=== PATIENT | female | born 1950 | race Hispanic/Latino ===

== ENCOUNTER 2024-06-28 09:34 | Inpatient (IN) | payer OTHER, MEDICARE ==
[~2024-06-28] VITALS: Ht 162.6 cm; Wt 102.5 kg
[2024-06-28] VITALS (7 sets, daily range): BP systolic 92–103; BP diastolic 57–61; PULSE 80–111; RESP 16–18; O2SAT 95–98
[2024-06-28 14:14] LABS: ABG BASE EXCESS -2.6 mmol/L (-2.0-3.0); ABG HCO3 20.8 mmol/L (21.0-28.0); ABG OXYGEN SATURATION 95.3 % (95.0-99.0); ABG PCO2 33 mmHg (32-45); ABG PH 7.423 (7.35-7.450); PO2, ARTERIAL BG 73.6 mmHg (83.0-108.0); VENT MODE, BG RA (ROOM AIR)
[2024-06-28] MEDS ORDERED: MIRA50TA PO (14:22)
[2024-06-28] MEDS ORDERED: GABA300C PO (14:22)
[2024-06-28] MEDS ORDERED: FLUT16H NASAL (14:22)
[2024-06-28] MEDS ORDERED: OLME20TA68 PO (14:22)
[2024-06-28] MEDS ORDERED: MONT-39 PO (14:22)
[2024-06-28] MEDS ORDERED: INSU100V54 SQ (14:22)
[2024-06-28] MEDS ORDERED: SITA1TAB PO (14:22)
[2024-06-28] MEDS ORDERED: DiphenhydrAMINE HCL 50 MG/ML VIAL IV PRN (16:00)
[2024-06-28] MEDS ORDERED: ALBUTEROL 0.083% 2.5 MG/3 ML INH IH PRN (16:00)
[2024-06-28] MEDS ORDERED: GUAIFENESIN-DM 200/20 MG 10 ML PO PRN (16:00)
[2024-06-28] MEDS ORDERED: KCL 20 MEQ ERTAB PO PRN (16:00)
[2024-06-28] MEDS ORDERED: HYDRALAZINE 25MG TABLET PO PRN (16:00)
[2024-06-28] MEDS ORDERED: LACTULOSE 20 GM/30 ML UDCUP PO PRN (16:00)
[2024-06-28] MEDS ORDERED: POTASSIUM CHLORIDE 20MEQ/100ML 100 ML IV PRN ×2 (16:00)
[2024-06-28] MEDS ORDERED: DOCUSATE SODIUM 100 MG CAP PO PRN (16:00)
[2024-06-28] MEDS ORDERED: ACETAMINOPHEN 325 MG TAB PO PRN (16:00)
[2024-06-28] MEDS ORDERED: POTASSIUM CHLORIDE 10% ELIXIR 20 MEQ/15 ML UDCUP PO PRN (16:00)
[2024-06-28] MEDS ORDERED: ONDANSETRON 4MG INJ IV PRN (16:00)
[2024-06-28] MEDS ORDERED: POLYETHYLENE GLYCOL 3350 17 GM POWD.PACK PO PRN (16:00)
[2024-06-28] MEDS ORDERED: DIPHENHYDRAMINE HCL 25 MG CAPSULE PO PRN (16:00)
[2024-06-28] MEDS: INSULIN HUMULIN R 100 UNIT/ML 3ML SQ SCH (16:30)
[2024-06-28] MEDS: NITROGLYCERIN 0.4 MG SL TAB SL PRN (16:51)
[2024-06-28] MEDS: ASPIRIN 81 MG EC TAB PO SCH (16:51)
[2024-06-28] MEDS: FUROSEMIDE 40 MG TABLET PO SCH (16:51)
[2024-06-28] MEDS: ISOSORBIDE MONO 30MG SR TAB PO SCH (16:57)
[2024-06-28] MEDS: METOPROLOL TARTRATE 25 MG TAB PO ONE ×2 (17:00→17:14)
[2024-06-28 17:22] LABS: BASOPHILS # (AUTO) 0.04 K/uL (0.00-0.20); BASOPHILS % (AUTO) 0.5 % (0.0-5.0); EOSINOPHILS # (AUTO) 0.19 K/uL (0.00-0.70); EOSINOPHILS % (AUTO) 2.5 % (0.0-8.0); IMMATURE GRANULOCYTE ABSOLUTE 0.02 K/uL (0-1); LYMPHOCYTES # (AUTO) 1.9 K/uL (1.0-4.8); LYMPHOCYTES % (AUTO) 24.6 % (21.0-51.0); MEAN CORPUSCULAR HEMOGLOBIN 28.5 pg (27.0-33.0); MEAN CORPUSCULAR HGB CONC 34.6 g/dL (32.0-36.0); MEAN CORPUSCULAR VOLUME 82.4 fL (79-99); MONOCYTES # (AUTO) 0.6 K/uL (0.1-1.0); MONOCYTES % (AUTO) 8.3 % (3.0-13.0); NEUTROPHILS # (AUTO) 4.9 K/uL (1.8-7.7); NEUTROPHILS % (AUTO) 63.8 % (40.0-77.0); PLATELET COUNT (AUTO) 312 K/uL (130-400); RED CELL DISTRIBUTION WIDTH 14.3 % (11.0-15.5); WHITE BLOOD COUNT (AUTO) 7.7 K/uL (4.8-10.8)
[2024-06-28 17:37] LABS: HEMOGLOBIN A1C 5.7 % (4.0-6.0)
[2024-06-28 17:40] LABS: B-TYPE NATRIURETIC PEPTIDE 1390 pg/mL (0-100)
[2024-06-28 17:41] LABS: ALBUMIN 2.6 g/dL (3.5-5.0); BILIRUBIN,TOTAL 0.3 mg/dL (0.2-1.0); CREATININE 1.1 mg/dL (0.5-1.0); MAGNESIUM 1.3 mg/dL (1.80-2.40); PHOSPHORUS 3.2 mg/dL (2.5-4.9); POTASSIUM 3.8 mmol/L (3.5-5.1); TOTAL PROTEIN, SERUM 5.7 g/dL (6.0-8.3)
[2024-06-28] MEDS: HEPARIN 25,000 UNITS/250ML D5W 250 ML IV SCH (18:32)
[2024-06-28] MEDS: FUROSEMIDE 20MG VIAL IV SCH (18:47)
[2024-06-28] MEDS: IPRATROPIUM/ALBUTEROL SULFATE 3 ML SOLUTION IH SCH (18:48)
[2024-06-28] MEDS: BUDESONIDE 0.5 MG/2 ML INH IH SCH (18:48)
[2024-06-28] MEDS: HEPARIN 5,000 UNIT VIAL IV PRN (18:54)
[2024-06-28] MEDS: GABAPENTIN 300 MG CAPSULE PO SCH (20:17)
[2024-06-28] MEDS: MONTELUKAST SODIUM 10 MG TAB PO SCH (20:17)
[2024-06-28] MEDS: FAMOTIDINE 20MG TAB PO SCH (20:17)
[2024-06-28] MEDS: METOPROLOL TARTRATE 25 MG TAB PO SCH (20:17)
[2024-06-28] MEDS: ATORVASTATIN 40 MG TABLET PO SCH (20:17)
[2024-06-28] MEDS: MAGNESIUM 2GM PREMIX 50ML 50 ML IV PRN (20:38)
[2024-06-29] VITALS (12 sets, daily range): BP systolic 95–107; BP diastolic 52–61; PULSE 46–107; RESP 16–18; O2SAT 94–95
[2024-06-29 05:46] LABS: BASOPHILS # (AUTO) 0.04 K/uL (0.00-0.20); BASOPHILS % (AUTO) 0.5 % (0.0-5.0); EOSINOPHILS # (AUTO) 0.24 K/uL (0.00-0.70); EOSINOPHILS % (AUTO) 2.9 % (0.0-8.0); HEMATOCRIT 28.8 % (36-48); IMMATURE GRANULOCYTE ABSOLUTE 0.03 K/uL (0-1); LYMPHOCYTES # (AUTO) 1.9 K/uL (1.0-4.8); LYMPHOCYTES % (AUTO) 22.6 % (21.0-51.0); MEAN CORPUSCULAR HEMOGLOBIN 29.1 pg (27.0-33.0); MEAN CORPUSCULAR VOLUME 85.5 fL (79-99); MONOCYTES # (AUTO) 0.6 K/uL (0.1-1.0); MONOCYTES % (AUTO) 7.7 % (3.0-13.0); NEUTROPHILS # (AUTO) 5.5 K/uL (1.8-7.7); NEUTROPHILS % (AUTO) 65.9 % (40.0-77.0); PLATELET COUNT (AUTO) 288 K/uL (130-400); RED BLOOD CELL COUNT(AUTO) 3.37 MIL/uL (4.00-5.50); RED CELL DISTRIBUTION WIDTH 14.3 % (11.0-15.5); WHITE BLOOD COUNT (AUTO) 8.3 K/uL (4.8-10.8)
[2024-06-29 06:07] LABS: CREATININE 1.1 mg/dL (0.5-1.0); MAGNESIUM 1.5 mg/dL (1.80-2.40); POTASSIUM 3.9 mmol/L (3.5-5.1); THYROID STIMULATING HORMONE 1.51 uIU/mL (0.36-3.74)
[2024-06-29] MEDS: INSULIN DEGLUDEC 30 UNIT SQ SCH (09:00)
[2024-06-29] MEDS: Olmesartan Medoxomil 20 MG PO SCH (09:00)
[2024-06-29] MEDS ORDERED: ENOXAPARIN SODIUM 40 MG/0.4 ML SYRINGE SQ SCH (09:00)
[2024-06-29] MEDS: SPIRONOLACTONE 25 MG TAB PO SCH (09:15)
[2024-06-29] MEDS: LISINOPRIL 2.5 MG TABLET PO SCH (09:16)
[2024-06-29] MEDS: FLUTICASONE PROPIONATE 50MCG/SPRAY 16 GM BOTTLE NS SCH (09:21)
[2024-06-29 17:06] LABS: INR 1.08 (0.85-1.15); PROTHROMBIN TIME 11.6 SEC (9.6-11.6)
[2024-06-29 17:07] LABS: PARTIAL THROMBOPLASTIN TIME 51.2 SEC (26.3-35.5)
[2024-06-29] MEDS: ACETAMINOPHEN 325 MG TAB PO PRN (20:01)
[2024-06-30] VITALS (47 sets, daily range): BP systolic 38–171; BP diastolic 21–100; PULSE 80–128; RESP 12–24; TEMP 99.3–99.7; O2SAT 96–100
[2024-06-30 03:22] LABS: HEMATOCRIT 26.7 % (36-48); MEAN CORPUSCULAR HEMOGLOBIN 28.6 pg (27.0-33.0); MEAN CORPUSCULAR HGB CONC 34.5 g/dL (32.0-36.0); MEAN CORPUSCULAR VOLUME 82.9 fL (79-99); RED BLOOD CELL COUNT(AUTO) 3.22 MIL/uL (4.00-5.50); RED CELL DISTRIBUTION WIDTH 14.3 % (11.0-15.5); WHITE BLOOD COUNT (AUTO) 8.2 K/uL (4.8-10.8)
[2024-06-30 03:31] LABS: CREATININE 1.3 mg/dL (0.5-1.0); POTASSIUM 3.5 mmol/L (3.5-5.1)
[2024-06-30 03:36] LABS: ALBUMIN 2.4 g/dL (3.5-5.0); BILIRUBIN,TOTAL 0.3 mg/dL (0.2-1.0); TOTAL PROTEIN, SERUM 5.4 g/dL (6.0-8.3)
[2024-06-30 03:44] LABS: INR 1.11 (0.85-1.15); PROTHROMBIN TIME 11.9 SEC (9.6-11.6)
[2024-06-30] MEDS ORDERED: NOREPINEPHRIN 8MG/250ML NS 250 ML IV PRN (07:00)
[2024-06-30] MEDS ORDERED: AMINOCAPROIC ACID 15,000 MG in 0.9% NACL 500ML IV PRN (07:00)
[2024-06-30] MEDS ORDERED: EPINEPHRINE 10 MG in 0.9% NACL 250ML IV PRN (07:00)
[2024-06-30] MEDS: CLINDAMYCIN 600 MG/50 ML IV SCH (11:02)
[2024-06-30] MEDS: 0.9%NACL 1000ML 1,000 ML IV ONE (11:42)
[2024-06-30] MEDS: CLINDAMYCIN IVPB 600MG/50ML 50 ML IV ONE ×2 (11:45→16:30)
[2024-06-30] MEDS ORDERED: HEPARIN 10,000 UNIT/10ML (1,000 UNIT/ML) VIAL ONE ×5 (12:12→20:30)
[2024-06-30] MEDS ORDERED: EPINEPHRINE PF 1MG (1:1,000) 1 MG/ML AMP ONE (12:12)
[2024-06-30] MEDS ORDERED: PROTAMINE SULFATE 10 MG/ML 25ML VIAL IV ONE ×2 (12:12→16:21)
[2024-06-30] MEDS ORDERED: LIDOCAINE PF 100MG/5ML (2%) SYRINGE 5ML ONE ×2 (12:12→14:09)
[2024-06-30] MEDS ORDERED: SODIUM BICARB 50MEQ 50ML VIAL 200 ML ONE ×2 (12:13→14:10)
[2024-06-30] MEDS ORDERED: AMINOCAPROIC ACID 5,000MG VIAL ONE (12:13)
[2024-06-30] MEDS ORDERED: PROPOFOL 10 MG/ML 20ML VIAL IV ONE (12:13)
[2024-06-30] MEDS ORDERED: ROCURONIUM BROMIDE 10MG/1ML 5ML VL ONE (12:13)
[2024-06-30] MEDS ORDERED: NOREPINEPHRINE BITARTRATE 1 MG/1 ML ML IV ONE (12:13)
[2024-06-30] MEDS ORDERED: FENTANYL CITRATE PF 50 MCG/1 ML 20ML VIAL IJ ONE (12:13)
[2024-06-30] MEDS ORDERED: AMIODARONE 150MG VIAL ONE ×2 (12:47→14:55)
[2024-06-30 13:30] LABS: ABG BASE EXCESS -3.4 mmol/L (-2.0-3.0); ABG HCO3 22.3 mmol/L (21.0-28.0); ABG OXYGEN SATURATION 99.2 % (95.0-99.0); ABG PCO2 43 mmHg (32-45); ABG PH 7.333 (7.35-7.450); CARBON MONOXIDE 0.3; DEVICE COMMENT 1; HHb 0.8; PO2, ARTERIAL BG 244.9 mmHg (83.0-108.0)
[2024-06-30] MEDS ORDERED: ACETAMINOPHEN 650 MG SUPPOSITORY RC PRN (13:30)
[2024-06-30] MEDS ORDERED: LACTULOSE 20 GM/30 ML UDCUP PO PRN (13:30)
[2024-06-30] MEDS ORDERED: ACETAMINOPHEN 325 MG TAB PO PRN (13:30)
[2024-06-30] MEDS ORDERED: AMINOCAPROIC ACID 5,000MG VIAL 15,000 MG in 0.9% NACL 250ML 250 ML IV SCH (13:30)
[2024-06-30] MEDS ORDERED: MAGNESIUM HYDROXIDE 30 ML/UDCUP PO PRN (13:30)
[2024-06-30] MEDS ORDERED: DEXTROSE 50%-WATER 50 ML DISP.SYRIN IV PRN (13:30)
[2024-06-30] MEDS ORDERED: MAGNESIUM 2GM PREMIX 50ML 50 ML IV PRN (13:30)
[2024-06-30] MEDS ORDERED: MORPHINE 2 MG SYG IV PRN (13:30)
[2024-06-30] MEDS ORDERED: PROPOFOL 1000 MG/100 ML 100 ML IV PRN (13:30)
[2024-06-30] MEDS ORDERED: MORPHINE 4 MG SYG IV PRN (13:30)
[2024-06-30] MEDS ORDERED: ONDANSETRON 4MG INJ IV PRN (13:30)
[2024-06-30] MEDS ORDERED: NOREPINEPHRINE BITARTRATE 8 MG in DEXTROSE 5%-WATER 250 ML IV PRN (13:30)
[2024-06-30] MEDS ORDERED: NITROGLYCERIN 50MG/D5W 250ML 250 BOT IV SCH (13:30)
[2024-06-30] MEDS ORDERED: GLUCAGON 1MG KIT 1 MG ML IM PRN (13:30)
[2024-06-30] MEDS ORDERED: 0.9%NACL 10ML VIAL IVP PRN (13:30)
[2024-06-30] MEDS ORDERED: TRAMADOL HCL 50 MG TABLET PO PRN ×2 (13:30)
[2024-06-30] MEDS: PAPAVERINE HCL 30 MG/ML 2ML VIAL ONE (13:36)
[2024-06-30] MEDS ORDERED: COMPOUND IV MISC 1 EACH IVSOLN MISC PRN (14:00)
[2024-06-30 14:23] LABS: ABG BASE EXCESS 3.1 mmol/L (-2.0-3.0); ABG HCO3 26.2 mmol/L (21.0-28.0); ABG OXYGEN SATURATION 99.1 % (95.0-99.0); ABG PCO2 34 mmHg (32-45); ABG PH 7.501 (7.35-7.450); CARBON MONOXIDE 0.2; DEVICE COMMENT 2; HHb 0.9; PO2, ARTERIAL BG 396.5 mmHg (83.0-108.0)
[2024-06-30] MEDS ORDERED: PHENYLEPHRINE HCL 10 MG/ML 1ML VIAL IV ONE (14:36)
[2024-06-30] MEDS ORDERED: VASOPRESSIN 20 UNITS/ML 1ML VIAL ONE (14:40)
[2024-06-30] MEDS ORDERED: MAGNESIUM SULFATE 4.06 MEQ/ML ***TPN USE ONLY IJ ONE (15:00)
[2024-06-30 15:26] LABS: ABG BASE EXCESS 0.7 mmol/L (-2.0-3.0); ABG HCO3 23.9 mmol/L (21.0-28.0); ABG PCO2 31 mmHg (32-45); ABG PH 7.507 (7.35-7.450); CARBON MONOXIDE 0.1; DEVICE COMMENT 3; PO2, ARTERIAL BG 226.7 mmHg (83.0-108.0)
[2024-06-30 15:48] LABS: ABG BASE EXCESS -1.9 mmol/L (-2.0-3.0); ABG HCO3 20.8 mmol/L (21.0-28.0); ABG PCO2 27 mmHg (32-45); CARBON MONOXIDE 0.3; DEVICE COMMENT 5; PO2, ARTERIAL BG 280.8 mmHg (83.0-108.0)
[2024-06-30 15:54] LABS: ABG BASE EXCESS -4.9 mmol/L (-2.0-3.0); ABG HCO3 18.1 mmol/L (21.0-28.0); ABG PCO2 27 mmHg (32-45); ABG PH 7.445 (7.35-7.450); CARBON MONOXIDE 0.2; DEVICE COMMENT 4; PO2, ARTERIAL BG 337.2 mmHg (83.0-108.0)
[2024-06-30] MEDS ORDERED: DOPAMINE 800MG/D5 250ML 250 ML IV PRN (16:00)
[2024-06-30] MEDS ORDERED: DOBUTAMINE 500 MG/D5% WATER 250 ML IV PRN (16:30)
[2024-06-30 16:35] LABS: ABG BASE EXCESS 1.9 mmol/L (-2.0-3.0); ABG HCO3 23.2 mmol/L (21.0-28.0); ABG OXYGEN SATURATION 98.3 % (95.0-99.0); ABG PCO2 26 mmHg (32-45); ABG PH 7.572 (7.35-7.450); CARBON MONOXIDE 0.2; DEVICE COMMENT 7; HHb 1.7; PO2, ARTERIAL BG 151.7 mmHg (83.0-108.0)
[2024-06-30 17:47] LABS: ABG BASE EXCESS 0.5 mmol/L (-2.0-3.0); ABG HCO3 23.7 mmol/L (21.0-28.0); ABG OXYGEN SATURATION 93.2 % (95.0-99.0); ABG PCO2 34 mmHg (32-45); ABG PH 7.462 (7.35-7.450); CARBON MONOXIDE 0.4; HHb 6.7; PO2, ARTERIAL BG 67.9 mmHg (83.0-108.0); VENT MODE, BG SIMV PS 10 (ROOM AIR)
[2024-06-30 17:50] LABS: HEMATOCRIT 34.3 % (36-48); MEAN CORPUSCULAR HEMOGLOBIN 29.2 pg (27.0-33.0); MEAN CORPUSCULAR HGB CONC 35.6 g/dL (32.0-36.0); MEAN CORPUSCULAR VOLUME 82.1 fL (79-99); RED BLOOD CELL COUNT(AUTO) 4.18 MIL/uL (4.00-5.50); RED CELL DISTRIBUTION WIDTH 14.3 % (11.0-15.5); WHITE BLOOD COUNT (AUTO) 27.8 K/uL (4.8-10.8)
[2024-06-30 18:02] LABS: INR 1.56 (0.85-1.15); PROTHROMBIN TIME 16.3 SEC (9.6-11.6)
[2024-06-30] MEDS: POTASSIUM CHLORIDE 20MEQ/100ML 100 ML IV PRN (18:02)
[2024-06-30 18:03] LABS: PARTIAL THROMBOPLASTIN TIME 30.5 SEC (26.3-35.5)
[2024-06-30 18:04] LABS: CREATININE 1.3 mg/dL (0.5-1.0); PHOSPHORUS 4.8 mg/dL (2.5-4.9); POTASSIUM 3.4 mmol/L (3.5-5.1)
[2024-06-30] MEDS: 0.9%NACL 1000ML 1,000 ML IV SCH (18:24)
[2024-06-30] MEDS: AMIODARONE 900MG VIAL 540 MG in DEXTROSE 5%-WATER 300 ML IV STA (18:24)
[2024-06-30] MEDS: ASPIRIN 81MG CHEW TAB PO ONE (18:26)
[2024-06-30] MEDS: ACETAMINOPHEN 1,000 MG/100 ML VIAL IV SCH (18:44)
[2024-06-30 18:49] LABS: ABG BASE EXCESS 2.1 mmol/L (-2.0-3.0); ABG HCO3 24.6 mmol/L (21.0-28.0); ABG OXYGEN SATURATION 97.9 % (95.0-99.0); ABG PCO2 32 mmHg (32-45); ABG PH 7.501 (7.35-7.450); CARBON MONOXIDE 0.8; DEVICE COMMENT LINE RN; HHb 2.1; PO2, ARTERIAL BG 115.2 mmHg (83.0-108.0); VENT MODE, BG SIMV PS10 (ROOM AIR)
[2024-06-30] MEDS: CALCIUM GLUC 1GM/10ML VIAL ONE (19:35)
[2024-06-30 19:42] LABS: ABG BASE EXCESS 3.3 mmol/L (-2.0-3.0); ABG HCO3 26.1 mmol/L (21.0-28.0); ABG OXYGEN SATURATION 98.4 % (95.0-99.0); ABG PCO2 33 mmHg (32-45); ABG PH 7.513 (7.35-7.450); CARBON MONOXIDE 0.3; DEVICE COMMENT LINE RN CHRIS; HHb 1.6; PO2, ARTERIAL BG 198.8 mmHg (83.0-108.0); VENT MODE, BG SIMV PS10 (ROOM AIR)
[2024-06-30] MEDS: VASOPRESSIN 40 UNITS in 0.9%NACL 50ML 40 ML IV SCH (19:50)
[2024-06-30] MEDS ORDERED: NITROGLYCERIN 50MG VIAL ONE (20:30)
[2024-06-30] MEDS ORDERED: IOHEXOL 350 MG/ML 100ML INFUS..BTL IV ONE (20:30)
[2024-06-30] MEDS ORDERED: LIDOCAINE HCL 1% MDV 50ML VIAL ONE (20:31)
[2024-06-30] MEDS ORDERED: SODIUM BICARB 50MEQ 50ML VIAL 50 ML ONE (20:39)
[2024-06-30 22:11] LABS: ABG BASE EXCESS 0.6 mmol/L (-2.0-3.0); ABG HCO3 22.8 mmol/L (21.0-28.0); ABG OXYGEN SATURATION 98.9 % (95.0-99.0); ABG PCO2 29 mmHg (32-45); ABG PH 7.512 (7.35-7.450); CARBON MONOXIDE 0; DEVICE COMMENT LINE RN CHRIS; HHb 1.1; PO2, ARTERIAL BG > 500.0 mmHg (83.0-108.0); VENT MODE, BG SIMV PS10 (ROOM AIR)
[2024-06-30] MEDS: NOREPINEPHRIN 8MG/250ML NS 250 ML IV ONE (22:30)
[2024-06-30] MEDS: DEXMEDETOMIDINE 400MCG/NS100ML IV SCH (22:32)
[2024-06-30 23:19] LABS: ABG BASE EXCESS -0.2 mmol/L (-2.0-3.0); ABG HCO3 22.7 mmol/L (21.0-28.0); ABG OXYGEN SATURATION 98.9 % (95.0-99.0); ABG PCO2 31 mmHg (32-45); CARBON MONOXIDE 0.3; DEVICE COMMENT LINE RN CHRIS; HHb 1.1; VENT MODE, BG SIMV PS10 (ROOM AIR)
[2024-06-30 23:28] LABS: HEMATOCRIT 28.4 % (36-48); MEAN CORPUSCULAR HEMOGLOBIN 30.4 pg (27.0-33.0); MEAN CORPUSCULAR HGB CONC 36.3 g/dL (32.0-36.0); MEAN CORPUSCULAR VOLUME 83.8 fL (79-99); PLATELET COUNT (AUTO) 188 K/uL (130-400); RED BLOOD CELL COUNT(AUTO) 3.39 MIL/uL (4.00-5.50); RED CELL DISTRIBUTION WIDTH 14.6 % (11.0-15.5); WHITE BLOOD COUNT (AUTO) 21.1 K/uL (4.8-10.8)
[2024-06-30 23:32] LABS: CREATININE 1.6 mg/dL (0.5-1.0); POTASSIUM 3.9 mmol/L (3.5-5.1)
[2024-06-30 23:36] LABS: INR 1.51 (0.85-1.15); PROTHROMBIN TIME 15.8 SEC (9.6-11.6)
[2024-06-30 23:37] LABS: ALBUMIN 1.7 g/dL (3.5-5.0); BILIRUBIN,TOTAL 1.4 mg/dL (0.2-1.0); TOTAL PROTEIN, SERUM 3.9 g/dL (6.0-8.3)
[2024-06-30] MEDS: 0.9% NACL 500ML IV.SOLN 500 ML IV SCH (23:38)
[2024-06-30] MEDS: CLINDAMYCIN IVPB 900MG/50ML 50 ML IV SCH (23:42)
[2024-06-30] MEDS: 0.9% NACL 500ML IV.SOLN 500 ML IV ONE (23:45)
[2024-06-30] MEDS: DOCUSATE SODIUM 100 MG CAP PO ONE (23:46)
[2024-06-30] MEDS: FAMOTIDINE 20MG VIAL IV SCH (23:48)
[2024-07-01] VITALS (101 sets, daily range): BP systolic 62–204; BP diastolic 19–191; PULSE 87–126; RESP 10–90; TEMP 97.5–103.5; O2SAT 99–100
[2024-07-01] MEDS: DOBUTAMINE 250MG/D5 250ML 250 ML IV SCH
[2024-07-01 00:16] LABS: ABG HCO3 21.2 mmol/L (21.0-28.0); ABG OXYGEN SATURATION 98.9 % (95.0-99.0); ABG PCO2 31 mmHg (32-45); ABG PH 7.457 (7.35-7.450); CARBON MONOXIDE 0.3; DEVICE COMMENT LINE RN CHRIS; HHb 1.1; PO2, ARTERIAL BG 423.8 mmHg (83.0-108.0); VENT MODE, BG SIMV PS10 (ROOM AIR)
[2024-07-01] MEDS: SODIUM BICARB 50MEQ 50ML VIAL IV PRN (00:28)
[2024-07-01] MEDS: SODIUM BICARB 50MEQ 50ML VIAL 25 MEQ in DEXTROSE 5%-WATER 1,000 ML IV SCH (00:31)
[2024-07-01] MEDS: CALCIUM GLUC 1GM 1 GM in 0.9%NACL 50ML 50 ML IV PRN (00:31)
[2024-07-01 01:31] LABS: ABG BASE EXCESS 2.2 mmol/L (-2.0-3.0); ABG HCO3 24.6 mmol/L (21.0-28.0); ABG OXYGEN SATURATION 98.9 % (95.0-99.0); ABG PCO2 31 mmHg (32-45); ABG PH 7.524 (7.35-7.450); CARBON MONOXIDE 0.3; HHb 1.1; PO2, ARTERIAL BG 439.7 mmHg (83.0-108.0); VENT MODE, BG SIMV (ROOM AIR)
[2024-07-01] MEDS: ALBUMIN (HUMAN) 5% 250 ML IV PRN (02:04)
[2024-07-01 02:34] LABS: ABG BASE EXCESS 2.1 mmol/L (-2.0-3.0); ABG HCO3 24.4 mmol/L (21.0-28.0); ABG OXYGEN SATURATION 98.9 % (95.0-99.0); ABG PCO2 30 mmHg (32-45); ABG PH 7.527 (7.35-7.450); CARBON MONOXIDE 0.4; DEVICE COMMENT LINE RN CHRIS; HHb 1.1; PO2, ARTERIAL BG 351.6 mmHg (83.0-108.0); VENT MODE, BG SIMV PS10 (ROOM AIR)
[2024-07-01] MEDS: NOREPINEPHRIN 8MG/250ML NS 250 ML IV ONE (02:59)
[2024-07-01 03:42] LABS: ABG BASE EXCESS 2.1 mmol/L (-2.0-3.0); ABG HCO3 25.4 mmol/L (21.0-28.0); ABG OXYGEN SATURATION 98.8 % (95.0-99.0); ABG PCO2 35 mmHg (32-45); CARBON MONOXIDE 0.8; DEVICE COMMENT LINE RN CHRIS; HHb 1.2; PO2, ARTERIAL BG 222.2 mmHg (83.0-108.0); VENT MODE, BG SIMV PS10 (ROOM AIR)
[2024-07-01 04:23] LABS: HEMATOCRIT 25.9 % (36-48); MEAN CORPUSCULAR HEMOGLOBIN 31.7 pg (27.0-33.0); MEAN CORPUSCULAR HGB CONC 37.8 g/dL (32.0-36.0); MEAN CORPUSCULAR VOLUME 83.8 fL (79-99); NUCLEATED RED BLOOD CELLS 0.1 % (0.0-0.19); RED BLOOD CELL COUNT(AUTO) 3.09 MIL/uL (4.00-5.50); RED CELL DISTRIBUTION WIDTH 15.1 % (11.0-15.5); WHITE BLOOD COUNT (AUTO) 15.2 K/uL (4.8-10.8)
[2024-07-01] MEDS: EPINEPHRINE PF 1MG (1:1,000) 10 MG in 0.9% NACL 250ML 240 ML IV PRN (04:26)
[2024-07-01 05:03] LABS: ABG BASE EXCESS 3.3 mmol/L (-2.0-3.0); ABG HCO3 26.7 mmol/L (21.0-28.0); ABG OXYGEN SATURATION 98.8 % (95.0-99.0); ABG PCO2 36 mmHg (32-45); ABG PH 7.489 (7.35-7.450); CARBON MONOXIDE 1.1; DEVICE COMMENT LINE RN CHRIS; HHb 1.2; PO2, ARTERIAL BG 215.7 mmHg (83.0-108.0); VENT MODE, BG SIMV PS10 (ROOM AIR)
[2024-07-01] MEDS ORDERED: PHARMACY COMMUNICATION MISC SCH (05:30)
[2024-07-01 06:31] LABS: ABG BASE EXCESS 2.8 mmol/L (-2.0-3.0); ABG HCO3 26.1 mmol/L (21.0-28.0); ABG OXYGEN SATURATION 98.9 % (95.0-99.0); ABG PCO2 35 mmHg (32-45); ABG PH 7.491 (7.35-7.450); CARBON MONOXIDE 1.3; HHb 1.1; PO2, ARTERIAL BG 205.5 mmHg (83.0-108.0); VENT MODE, BG SIMV-VC PS10 (ROOM AIR)
[2024-07-01] MEDS: INSULIN REGULAR, HUMAN 3ML 100 UNIT in 0.9%NACL 100ML 99 ML IV SCH (06:55)
[2024-07-01 07:28] LABS: INR 1.75 (0.85-1.15); PROTHROMBIN TIME 18.1 SEC (9.6-11.6)
[2024-07-01 07:40] LABS: CREATININE 1.7 mg/dL (0.5-1.0); MAGNESIUM 2.7 mg/dL (1.80-2.40); PHOSPHORUS 1.8 mg/dL (2.5-4.9); POTASSIUM 4.8 mmol/L (3.5-5.1)
[2024-07-01] MEDS: LIDOCAINE 2G/250ML 250 ML IV ONE (07:40)
[2024-07-01 07:57] LABS: PARTIAL THROMBOPLASTIN TIME 36.5 SEC (26.3-35.5)
[2024-07-01] MEDS: POTASSIUM PHOS 15 mMOL+NS250ML 250 ML IV PRN (08:20)
[2024-07-01 08:51] LABS: FIBRINOGEN > 860 mg/dL (180-350)
[2024-07-01] MEDS: FUROSEMIDE 20MG VIAL IV SCH (09:01)
[2024-07-01 09:13] LABS: ABG BASE EXCESS 2.3 mmol/L (-2.0-3.0); ABG HCO3 25.6 mmol/L (21.0-28.0); ABG OXYGEN SATURATION 98.6 % (95.0-99.0); ABG PCO2 35 mmHg (32-45); ABG PH 7.486 (7.35-7.450); CARBON MONOXIDE 1.8; HHb 1.3; PO2, ARTERIAL BG 167.1 mmHg (83.0-108.0); VENT MODE, BG SIMV-VC PS10 (ROOM AIR)
[2024-07-01] MEDS: FUROSEMIDE 40MG VIAL IV ONE (09:50)
[2024-07-01] MEDS: BUMETANIDE 1MG/4ML VIAL IV SCH (11:41)
[2024-07-01] MEDS ORDERED: MORPHINE 2 MG SYG IV PRN (12:00)
[2024-07-01] MEDS: NOREPINEPHRIN 8MG/250ML NS 250 ML IV PRN (12:25)
[2024-07-01 12:43] LABS: HEMATOCRIT 22.4 % (36-48); MEAN CORPUSCULAR HGB CONC 39.3 g/dL (32.0-36.0); MEAN CORPUSCULAR VOLUME 83.9 fL (79-99); NUCLEATED RED BLOOD CELLS 0.9 % (0.0-0.19); PLATELET COUNT (AUTO) 153 K/uL (130-400); RED BLOOD CELL COUNT(AUTO) 2.67 MIL/uL (4.00-5.50); RED CELL DISTRIBUTION WIDTH 15.9 % (11.0-15.5)
[2024-07-01 12:57] LABS: MAGNESIUM 2.6 mg/dL (1.80-2.40); POTASSIUM 5.5 mmol/L (3.5-5.1)
[2024-07-01] MEDS: DEXTROSE 50%-WATER 50 ML DISP.SYRIN IV ONE ×2 (13:21→16:15)
[2024-07-01] MEDS: INSULIN HUMULIN R 100 UNIT/ML 3ML IV ONE ×2 (13:25→16:17)
[2024-07-01] MEDS: HYDROCORTISONE SOD SUCCINATE 100 MG/2 ML VIAL IV SCH (13:29)
[2024-07-01] MEDS ORDERED: HYDROCORTISONE SOD SUCCINATE 100 MG/2 ML VIAL IV SCH (13:30)
[2024-07-01 13:38] LABS: ABG BASE EXCESS -0.3 mmol/L (-2.0-3.0); ABG HCO3 23.4 mmol/L (21.0-28.0); ABG OXYGEN SATURATION 98.2 % (95.0-99.0); ABG PCO2 34 mmHg (32-45); ABG PH 7.451 (7.35-7.450); CARBON MONOXIDE 1.8; HHb 1.7; PO2, ARTERIAL BG 131.4 mmHg (83.0-108.0); VENT MODE, BG SIMV-VC PS10 (ROOM AIR)
[2024-07-01 14:39] LABS: BAND NEUTROPHILS % (MANUAL) 10 % (0-2); LYMPHOCYTES % (MANUAL) 13 % (22-44); MAN.DIFF COMMENT-IMPRESSION MANUAL DIFFERENTIAL; MONOCYTES % (MANUAL) 6 % (2-9); SEGMENTED NEUTROPHILS % 71 % (40-70); TOTAL CELLS COUNTED 100
[2024-07-01 14:40] LABS: PLATELET MORPHOLOGY COMMENT ADEQUATE
[2024-07-01] MEDS: KAYEXALATE 15GM/60ML PO ONE (16:14)
[2024-07-01] MEDS: AMIODARONE 900MG VIAL 360 MG in DEXTROSE 5%-WATER 200 ML IV SCH (16:50)
[2024-07-01 16:55] LABS: ABG BASE EXCESS -3.9 mmol/L (-2.0-3.0); ABG HCO3 20.4 mmol/L (21.0-28.0); ABG OXYGEN SATURATION 98.1 % (95.0-99.0); ABG PCO2 34 mmHg (32-45); ABG PH 7.395 (7.35-7.450); CARBON MONOXIDE 1.7; HHb 1.8; PO2, ARTERIAL BG 130.3 mmHg (83.0-108.0); VENT MODE, BG SIMV-VC PS 10 (ROOM AIR)
[2024-07-01] MEDS ORDERED: AMIODARONE 900MG VIAL 450 MG in DEXTROSE 5%-WATER 250 ML IV PRN (17:00)
[2024-07-01 17:12] LABS: ALBUMIN 1.4 g/dL (3.5-5.0); BILIRUBIN,TOTAL 3.8 mg/dL (0.2-1.0); CREATININE 2.2 mg/dL (0.5-1.0); POTASSIUM 5.5 mmol/L (3.5-5.1); TOTAL PROTEIN, SERUM 3.8 g/dL (6.0-8.3)
[2024-07-01 17:44] LABS: BILIRUBIN,URINE LARGE mg/dL (NEGATIVE); GLUCOSE, URINE (UA) 100 mg/dL (NEGATIVE); KETONES,URINE 15 mg/dL (NEGATIVE); LEUKOCYTE ESTERASE ,URINE MODERATE Leu/uL (NEGATIVE); NITRATE,URINE POSITIVE (NEGATIVE); OCCULT BLOOD,URINE LARGE (NEGATIVE); PH,URINE 6.5 (5.0-8.0); PROTEIN,URINE >=300 mg/dL (NEGATIVE)
[2024-07-01 17:45] LABS: ADD UA MICROSCOPIC YES; APPEARANCE,URINE CLOUDY (CLEAR); COLOR,URINE BROWN (YELLOW)
[2024-07-01 18:15] LABS: RBC,URINE None Seen /HPF (0-1)
[2024-07-01 18:16] LABS: BACTERIA,URINE Many /HPF (None Seen); WBC,URINE 51-100 /HPF (0-1)
[2024-07-01 18:58] LABS: ABG BASE EXCESS 0.1 mmol/L (-2.0-3.0); ABG HCO3 23.4 mmol/L (21.0-28.0); ABG OXYGEN SATURATION 98.5 % (95.0-99.0); ABG PCO2 33 mmHg (32-45); ABG PH 7.473 (7.35-7.450); CARBON MONOXIDE 1.3; HHb 1.4; PO2, ARTERIAL BG 188.7 mmHg (83.0-108.0); VENT MODE, BG SIMV PS 10 (ROOM AIR)
[2024-07-01 21:01] LABS: ABG BASE EXCESS -0.3 mmol/L (-2.0-3.0); ABG HCO3 24.1 mmol/L (21.0-28.0); ABG OXYGEN SATURATION 98.7 % (95.0-99.0); ABG PCO2 38 mmHg (32-45); ABG PH 7.418 (7.35-7.450); CARBON MONOXIDE 1.3; HHb 1.2; PO2, ARTERIAL BG 180.4 mmHg (83.0-108.0); VENT MODE, BG SIMV PS 10 (ROOM AIR)
[2024-07-01 23:01] LABS: ABG HCO3 22.8 mmol/L (21.0-28.0); ABG OXYGEN SATURATION 98.6 % (95.0-99.0); ABG PCO2 34 mmHg (32-45); CARBON MONOXIDE 1.2; HHb 1.3; VENT MODE, BG SIMV PS 10 (ROOM AIR)
[2024-07-02] VITALS (56 sets, daily range): BP systolic 14–114; BP diastolic 63–103; PULSE 80–100; RESP 10–124; TEMP 98.6; O2SAT 96–100
[2024-07-02 01:21] LABS: ABG BASE EXCESS -1.3 mmol/L (-2.0-3.0); ABG HCO3 22.4 mmol/L (21.0-28.0); ABG OXYGEN SATURATION 98.6 % (95.0-99.0); ABG PCO2 34 mmHg (32-45); ABG PH 7.438 (7.35-7.450); CARBON MONOXIDE 1.4; HHb 1.3; VENT MODE, BG SIMV (ROOM AIR)
[2024-07-02] MEDS: LIDOCAINE 2G/250ML 250 ML IV SCH (01:24)
[2024-07-02] MEDS: CALCIUM GLUC 1GM/10ML VIAL IV ONE (01:47)
[2024-07-02] MEDS: DEXTROSE 50%-WATER 50 ML DISP.SYRIN IV ONE ×2 (01:53→05:57)
[2024-07-02] MEDS: INSULIN HUMULIN R 100 UNIT/ML 3ML IV ONE ×2 (01:55→05:59)
[2024-07-02 02:57] LABS: ABG BASE EXCESS -1.7 mmol/L (-2.0-3.0); ABG HCO3 21.2 mmol/L (21.0-28.0); ABG OXYGEN SATURATION 97.9 % (95.0-99.0); ABG PCO2 29 mmHg (32-45); CARBON MONOXIDE 2.1; PO2, ARTERIAL BG 107.7 mmHg (83.0-108.0); VENT MODE, BG SIMV PS 10 (ROOM AIR)
[2024-07-02 04:50] LABS: HEMATOCRIT 24.7 % (36-48); MEAN CORPUSCULAR HEMOGLOBIN 29.8 pg (27.0-33.0); MEAN CORPUSCULAR HGB CONC 35.6 g/dL (32.0-36.0); MEAN CORPUSCULAR VOLUME 83.7 fL (79-99); NUCLEATED RED BLOOD CELLS 1.4 % (0.0-0.19); PLATELET COUNT (AUTO) 148 K/uL (130-400); RED BLOOD CELL COUNT(AUTO) 2.95 MIL/uL (4.00-5.50); RED CELL DISTRIBUTION WIDTH 16.5 % (11.0-15.5); WHITE BLOOD COUNT (AUTO) 17.5 K/uL (4.8-10.8)
[2024-07-02 05:07] LABS: ABG BASE EXCESS -3.5 mmol/L (-2.0-3.0); ABG HCO3 20.4 mmol/L (21.0-28.0); ABG OXYGEN SATURATION 98.4 % (95.0-99.0); ABG PCO2 32 mmHg (32-45); ABG PH 7.418 (7.35-7.450); CARBON MONOXIDE 1.5; HHb 1.5; PO2, ARTERIAL BG 145.9 mmHg (83.0-108.0); VENT MODE, BG SIMV,PS10 (ROOM AIR)
[2024-07-02 05:09] LABS: CREATININE 2.7 mg/dL (0.5-1.0); POTASSIUM 5.7 mmol/L (3.5-5.1)
[2024-07-02] MEDS: CALCIUM GLUC 1GM/10ML VIAL IVPB ONE (05:58)
[2024-07-02 07:17] LABS: ABG BASE EXCESS -3.4 mmol/L (-2.0-3.0); ABG HCO3 20.2 mmol/L (21.0-28.0); ABG OXYGEN SATURATION 98.4 % (95.0-99.0); ABG PCO2 31 mmHg (32-45); CARBON MONOXIDE 1.8; DEVICE COMMENT ALINE; HHb 1.5; PO2, ARTERIAL BG 143.2 mmHg (83.0-108.0); VENT MODE, BG SIMV PS10 (ROOM AIR)
[2024-07-02] MEDS: LORAZEPAM 2 MG/ML 1 ML VIAL IVP PRN (07:56)
[2024-07-02] MEDS: LORAZEPAM 2 MG/ML 1 ML VIAL ONE (07:59)
[2024-07-02] MEDS: SODIUM BICARB 8.4% 50ML SYRING 150 MEQ in DEXTROSE 5%-WATER 1,000 ML IVP SCH (08:11)
[2024-07-02] MEDS ORDERED: LEVETIRACETAM 500 MG/5 ML SD VIAL IV SCH ×2 (08:30→20:00)
[2024-07-02] MEDS: METOPROLOL TARTRATE 25 MG TAB PO SCH (08:51)
[2024-07-02] MEDS: LEVETIRACETAM 1,000 MG in 0.9%NACL 100ML 100 ML IV ONE (08:54)
[2024-07-02] MEDS: AMIODARONE 540 MG/D5W 300ML (0.5MG/MIN) IV SCH (08:56)
[2024-07-02] MEDS: FUROSEMIDE 20 MG TABLET PO SCH (09:06)
[2024-07-02 09:09] LABS: ABG BASE EXCESS -1.5 mmol/L (-2.0-3.0); ABG HCO3 22.3 mmol/L (21.0-28.0); ABG OXYGEN SATURATION 98.3 % (95.0-99.0); ABG PCO2 34 mmHg (32-45); ABG PH 7.434 (7.35-7.450); CARBON MONOXIDE 1.8; DEVICE COMMENT ALINE; HHb 1.6; PO2, ARTERIAL BG 137.4 mmHg (83.0-108.0); VENT MODE, BG SIMV PS10 (ROOM AIR)
[2024-07-02 11:09] LABS: ABG BASE EXCESS 0.3 mmol/L (-2.0-3.0); ABG HCO3 24.3 mmol/L (21.0-28.0); ABG OXYGEN SATURATION 98.3 % (95.0-99.0); ABG PCO2 36 mmHg (32-45); ABG PH 7.443 (7.35-7.450); CARBON MONOXIDE 1.5; DEVICE COMMENT ALINE; HHb 1.6; PO2, ARTERIAL BG 159.8 mmHg (83.0-108.0); VENT MODE, BG SIMV PS10 (ROOM AIR)
[2024-07-02 11:45] LABS: ALBUMIN 1.4 g/dL (3.5-5.0); BILIRUBIN,DIRECT 0.7 mg/dL (0.0-0.3); BILIRUBIN,TOTAL 3.8 mg/dL (0.2-1.0); TOTAL PROTEIN, SERUM 3.5 g/dL (6.0-8.3)
[2024-07-02] MEDS ORDERED: CEFEPIME HCL 2 GM VIAL IVPB SCH (12:00)
[2024-07-02] MEDS ORDERED: LEVOFLOXACIN 500 MG/D5W 100 ML 100 ML IV ONE (13:00)
[2024-07-02] MEDS ORDERED: INSULIN HUMULIN R 100 UNIT/ML 3ML SQ SCH (16:30)
[2024-07-02] MEDS ORDERED: LEVETIRACETAM 500 MG in 0.9%NACL 100ML 100 ML IV SCH (20:00)
[2024-07-03] MEDS ORDERED: ENOXAPARIN SODIUM 30 MG/0.3 ML SQ SCH (09:00)
[2024-07-03] MEDS ORDERED: LEVOFLOXACIN 250 MG/D5W 50ML 50 ML IVPB SCH (13:00)
== END 2024-07-02 12:40 | disposition short-term general hospital (02) | DRG 215 ==
LOC: 2AH 12:26 → 2CV 06-30 12:14
PROVIDERS: ADMIT Internal Medicine Critical Care Medicine; ATTEND Internal Medicine Critical Care Medicine
PROC: 02HA3RZ Insertion of Short-term External Heart Assist System into Heart, Percutaneous Approach (ICD-10-PCS; 2024-06-30)
PROC: 5A0221D Assistance with Cardiac Output using Impeller Pump, Continuous (ICD-10-PCS; 2024-06-30)
PROC: 30233N1 Transfusion of Nonautologous Red Blood Cells into Peripheral Vein, Percutaneous Approach (ICD-10-PCS; 2024-06-30)
PROC: B24BZZ4 Ultrasonography of Heart with Aorta, Transesophageal (ICD-10-PCS; 2024-06-30)
PROC: 021009W Bypass Coronary Artery, One Artery from Aorta with Autologous Venous Tissue, Open Approach (ICD-10-PCS; principal; 2024-06-30 12:06)
PROC: 02100Z9 Bypass Coronary Artery, One Artery from Left Internal Mammary, Open Approach (ICD-10-PCS; 2024-06-30 12:06)
PROC: 5A02210 Assistance with Cardiac Output using Balloon Pump, Continuous (ICD-10-PCS; 2024-06-30 12:06)
PROC: 06BQ4ZZ Excision of Left Saphenous Vein, Percutaneous Endoscopic Approach (ICD-10-PCS; 2024-06-30 12:06)
PROC: 5A1221Z Performance of Cardiac Output, Continuous (ICD-10-PCS; 2024-06-30 12:06)
PROC: 02HV33Z Insertion of Infusion Device into Superior Vena Cava, Percutaneous Approach (ICD-10-PCS; 2024-07-02)
PROC: B548ZZA Ultrasonography of Superior Vena Cava, Guidance (ICD-10-PCS; 2024-07-02)
DX: I25.10 Atherosclerotic heart disease of native coronary artery without angina pectoris (principal); I21.4 Non-ST elevation (NSTEMI) myocardial infarction; I50.23 Acute on chronic systolic (congestive) heart failure; R57.0 Cardiogenic shock; E87.20 Acidosis, unspecified; I31.39 Other pericardial effusion (noninflammatory); N17.9 Acute kidney failure, unspecified; I25.5 Ischemic cardiomyopathy; I95.89 Other hypotension; J44.9 Chronic obstructive pulmonary disease, unspecified; F17.210 Nicotine dependence, cigarettes, uncomplicated; E87.6 Hypokalemia; I34.0 Nonrheumatic mitral (valve) insufficiency; D72.829 Elevated white blood cell count, unspecified; K21.9 Gastro-esophageal reflux disease without esophagitis; I11.0 Hypertensive heart disease with heart failure; E78.5 Hyperlipidemia, unspecified; E11.65 Type 2 diabetes mellitus with hyperglycemia; Z88.0 Allergy status to penicillin; Z79.4 Long term (current) use of insulin; Z79.899 Other long term (current) drug therapy
CPT/HCPCS: 33990; 36415; 36600; 71045; 80048; 80053; 80061; 80076; 81001; 82010; 82330; 82435; 82550; 82803; 82947; 82948; 83036; 83605; 83615; 83735; 83880; 84100; 84132; 84145; 84295; 84443; 84484; 85018; 85025; 85027; 85384; 85610; 85730; 86850; 86900; 86901; 86923; 87040; 87086; 87186; 87641; 93005; 93306; 93308; 93312; 93318; 93325; 93356; 93880; 94002; 94003; 94010; 94640; 94664; A4606; A7048; C1729; C1769; C1894; G0378; J0171; J0282; J0612; J1250; J1644; J1720; J1815; J1940; J1953; J2001; J2060; J2371; J2440; J2704; J2720; J3010; J3475; J3480; J3490; J7030; J7040; J7050; J7060; J7070; P9016; P9045; Q9967; A4216; A4222; A4223; A4351; A4452; A4600; A4605; A4649; A4663; A6204; A6219; A7040; C1713; C1776; C1887; G0168; Q9965